=== PATIENT | female | born 1980 | race Caucasian/White ===

== ENCOUNTER 2018-10-10 14:04 | Emergency (ER) | payer MEDICAID ==
[~2018-10-10] VITALS: Wt 105.0 kg
[2018-10-10 14:08] VITALS: BP 168/98; PULSE 79; RESP 18
[2018-10-10] MEDS ORDERED: NAPR-985 PO (17:57)
--- NOTE | 2018-10-10 20:20 | ERD ---
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 Patient states she had difficulty getting up due to pain now complains of sharp pain in elbow with some numbness to her forearm. Also has pain to her left knee states she is unable to ambulate. States she has had ligamentous injuries to this knee in the past. History significant for hypertension and diabetes controlled with oral medications. ROS All systems reviewed and are negative except as per history of present illness. Medications Home Meds Active Scripts Naproxen* (Naprosyn*) 500 Mg Tablet, 500 MG PO BID PRN for PAIN AND/OR INFLAMMATION for 10 Days, #20 TAB Prov:FABIANA ROSE [place] 10/10/18 Allergies Allergies: Coded Allergies: Penicillins (Verified Allergy, 10/10/18) PMhx/Soc History of Surgery: Yes (C SECTION X 2) Anesthesia Reaction: No Hx Neurological Disorder: No Hx Respiratory Disorders: No Hx Cardiac Disorders: Yes (HTN) Hx Psychiatric Problems: No Hx Miscellaneous Medical Probl: Yes (PRE DM) Hx Alcohol Use: No Hx Substance Use: No Hx Tobacco Use: No Smoking Status: Never smoker Physical Exam Vitals Vital Signs Date Temp Pulse Resp B/P (MAP) Pulse Ox O2 O2 Flow FiO2 Time Delivery Rate 10/10/18 98.3 79 18 168/98 98 14:08 (121) Physical Exam Const: No acute distress Head: Atraumatic Eyes: Normal Conjunctiva ENT: Normal External Ears, Nose and Mouth. Neck: Full range of motion. No meningismus. Resp: Clear to auscultation bilaterally Cardio: Regular rate and rhythm, no murmurs Abd: Soft, non tender, non distended. Normal bowel sounds Skin: No petechiae or rashes Back: No midline or flank tenderness Musculoskeletal: Left Elbow: +pain at epicondyle, no bruising, no swelling, ltd ROM at elbow, sensation intake, small abrasion at distal elbow. Left Knee: +abrasion over patella, in line, +tenderness over m/l epicondyle, Negative Sandeep's, posterior drawer, neg varus/valgus Ext: No cyanosis, or edema Neur: Awake and alert Psych: Normal Mood and Affect Procedures/MDM This is a 37-year-old female who presents to the emergency room with pain to left elbow and left knee ED COURSE: The patient was stable throughout ED course. I kept the patient and/or family informed of laboratory and diagnostic imaging results throughout the ED course. DIAGNOSTIC IMAGING: X-ray left elbow No acute abnormality seen, no fractures, no dislocations, no joint space narrowing Knee left knee radiograph, bones are intact, joint space preserved, soft tissues are unremarkable Read by radiologist. MEDICATIONS GIVEN: No medications given as patient states she took ibuprofen 800 mg prior to arrival Patient has musculoskeletal strain of the left elbow and knee. Due to radiology results and clinical exam there is a low suspicion for fracture, dislocation, hematoma, ligament or meniscal injury. Patient was fitted with a knee immobilizer to the left knee and Gene wrap and splint to left elbow with instructions on care including releasing Gene wrap and sling from elbow in 3-4 days and starting to extend and exercise arm. Patient provided with instructions on RICE and signs and symptoms return to emergency room. She instructed to follow-up in 1-2 weeks with primary care provider for reassessment of injuries. Instructed patient that further assessment may require more diagnostics or physical therapy. Active patient on analgesia. Departure Diagnosis: Primary Impression: Elbow sprain Additional Impression: Knee sprain Condition: Stable Patient Instructions: Knee Sprain Referrals: [facility] YOU HAVE RECEIVED A MEDICAL SCREENING EXAM AND THE RESULTS INDICATE THAT YOU DO NOT HAVE A CONDITION THAT REQUIRES URGENT TREATMENT IN THE EMERGENCY DEPARTMENT. FURTHER EVALUATION AND TREATMENT OF YOUR CONDITION CAN WAIT UNTIL YOU ARE SEEN IN YOUR DOCTORS OFFICE WITHIN THE NEXT 1-2 DAYS. IT IS YOUR RESPONSIBILITY TO MAKE AN APPOINTMENT FOR FOLOW-UP CARE. IF YOU HAVE A PRIMARY DOCTOR --you should call your primary doctor and schedule an appointment IF YOU DO NOT HAVE A PRIMARY DOCTOR YOU CAN CALL OUR PHYSICIAN REFERRAL HOTLINE AT IF YOU CAN NOT AFFORD TO SEE A PHYSICIAN YOU CAN CHOSE FROM THE FOLLOWING [facility] [id number] [facility] [address] [facility] [facility] [address] [facility] [address] [facility] [address] [facility]. [facility] [address] Additional Instructions: Thank you very much for allowing us to participate in your care. Your health and safety is our top priority at [facility]. Call your primary care doctor TOMORROW for an appointment during the next 2-4 days and bring all the information and medications prescribed. Have prescriptions filled and follow precisely the directions on the label. If the symptoms get worse and your provider is unavailable, return to the Emergency Department immediately. Use knee immobilizer for comfort. Use caution when using crutches. Please follow-up with your primary care provider in 1 week for reassessment of knee injury. You may need further assessment, diagnostics, or physical therapy. Keep Gene wrap on left elbow in sling for 2-3 days after that please stretch and extend your elbow and wrist several times a day. Use Naprosyn or ibuprofen (Advil) for pain, do not use ibuprofen and Naprosyn together. FABIANA ROSE NP Oct 10, 2018 20:20
== END 2018-10-10 18:56 | disposition home or self-care (01) ==
LOC: FTE 14:04
DX: S83.92XA Sprain of unspecified site of left knee, initial encounter (principal); S53.402A Unspecified sprain of left elbow, initial encounter; I10 Essential (primary) hypertension; W18.39XA Other fall on same level, initial encounter; Y92.22 Religious institution as the place of occurrence of the external cause
CPT/HCPCS: 29505; 73080; 73562; Z7502